=== PATIENT | male | born 1980 | race Caucasian/White ===

== ENCOUNTER → 2016-08-12 | Day surgery (SDC) | payer OTHER ==
[~2016-08-12] MED LIST: FLEXERIL10 MG PO; MOBIC15 MG PO
--- NOTE | ~2016-08-12 | OR ---
Unit #: [id number] #: [id number] Patient: BEATRICE HENNESSY [id number] [address] [place], [place] [address] [id number] O MR#: [id number] NAME: BEATRICE HENNESSY ROOM: Date of Procedure: 08/12/2016 Admission Date: 08/12/2016 Surgeon: Chele Burks M.D. : 1980 Attending Physician: Chele Burks M.D. OPERATIVE REPORT PREOPERATIVE DIAGNOSES Cervical radiculopathy, degenerative cervical disk disease, cervical spondylosis, cervical spinal stenosis. POSTOPERATIVE DIAGNOSES Cervical radiculopathy, degenerative cervical disk disease, cervical spondylosis, cervical spinal stenosis. PROCEDURE PERFORMED Cervical epidural steroid injection with intravenous sedation and fluoroscopic guidance for needle localization. INDICATIONS FOR PROCEDURE The patient is a 36-year-old male with complaints of left upper extremity pain, paresthesia, numbness and at times weakness presented for about 4 to 5 months. There was no initiating etiology. He has gotten moderately better with oral steroids. He stops the medications, the pain returns a bit. He also has gotten some improvement with meloxicam. He has had prior history of had a lumbar epidural steroid injection in a year ago, did very well with a single injection. At this point, he failed conservative measures based on his pathology which shows C5-C6 spinal neural foraminal stenosis worse left than the right. Plan is for trial of epidural steroid injections diagnostic and therapeutic modality at that level. DESCRIPTION OF PROCEDURE The patient was placed in a seated position. Standard monitors were applied. 4 mg of Versed were given in divided doses for anxiolysis and sedation, which were adequate. Vital signs remained stable. Sterile prep and drape then of the cervical area was performed. The skin then at the C5 level was localized with 1% lidocaine. An 18-gauge [employer] needle was then advanced via hanging drop technique and fluoroscopic guidance in toward the epidural space. After confirming proper positioning with fluoroscopy and radiographic contrast, 80 mg of Depo-Medrol and 2 mL of 0.25% bupivacaine were deposited. The patient tolerated the procedure otherwise well and was discharged to the recovery room in stable condition. Dictated by... Chele Burks M.D. Unit #: [id number] #: [id number] Patient: BEATRICE HENNESSY ENE/aden TD: 08/12/2016 23:27 JOB #: [id number] CC: Carmina Joseph OPERATIVE REPORT Page 1 of 1 X Chele Burks MD X PROCEDURE OPERATIVE NOTE
== END | disposition home or self-care (01) ==
LOC: CCSC 07:03
DX: M50.122 Cervical disc disorder at C5-C6 level with radiculopathy (principal); M47.22 Other spondylosis with radiculopathy, cervical region; M48.02 Spinal stenosis, cervical region
CPT/HCPCS: J1040; J2250

== ENCOUNTER → 2016-12-23 | Day surgery (SDC) | payer OTHER ==
--- NOTE | ~2016-12-23 | OR ---
Unit #: [id number] #: [id number] Patient: BEATRICE HENNESSY [id number] [address] [place], [place] [address] [id number] O MR#: [id number] NAME: BEATRICE HENNESSY ROOM: Date of Procedure: 12/23/2016 Admission Date: 12/23/2016 Surgeon: Chele Burks M.D. : 1980 Attending Physician: Chele Burks M.D. Primary Care Physician: Generic Doctor Not In System OPERATIVE REPORT PREOPERATIVE DIAGNOSES Neck pain, cervical radiculopathy, degenerative cervical disk disease. POSTOPERATIVE DIAGNOSES Neck pain, cervical radiculopathy, degenerative cervical disk disease. PROCEDURE PERFORMED Cervical epidural steroid injection with intravenous sedation and fluoroscopic guidance for needle localization. INDICATIONS FOR PROCEDURE The patient is a 36-year-old male with return of right upper extremity pain and neck pain. He is treated with a single epidural steroid injections 4 months ago and have 75% reduction in pain for about a month and then a gradual return, but overall he did better for 2-1/2 to 3 months. His workup which showed the C5-C6 disk osteophyte complex including moderate to severe neural foraminal narrowing actually worse in the left than the right. Based on history, pathology, symptomatology, and options, and having failed other conservative measures, plan is to repeat an epidural steroid injection give the patient a trial of a series injections. Five years ago, he had a series of lumbar injections, he has not had any problem at that level since. DESCRIPTION OF PROCEDURE The patient was placed in the seated position. Standard monitors were applied. 4 mg of Versed were given for sedation and anxiolysis, which were adequate. Vital signs remained stable. Sterile prep and drape then of the cervical area was performed. The skin then at the C5-C6 level was localized with 1% lidocaine. An 18-gauge [employer] needle was then advanced via hanging drop technique and fluoroscopic guidance in toward the epidural space. After confirming proper positioning with fluoroscopy and radiographic contrast, 80 mg of Depo-Medrol and 2 mL of 0.25% bupivacaine were deposited. The patient tolerated the procedure otherwise well and was discharged to the recovery room in stable condition. Dictated by... Chele Burks M.D. ENE/modl TD: 12/23/2016 17:17 Unit #: [id number] #: [id number] Patient: BEATRICE HENNESSY JOB #: [id number] CC: Carmina Joseph OPERATIVE REPORT Page 1 of 1 X Chele Burks MD X PROCEDURE OPERATIVE NOTE
== END | disposition home or self-care (01) ==
LOC: CCSC 07:21
DX: M50.10 Cervical disc disorder with radiculopathy, unspecified cervical region (principal); M99.71 Connective tissue and disc stenosis of intervertebral foramina of cervical region
CPT/HCPCS: J1040; J2250